=== PATIENT | female | born 1995 | race African-American/Black ===

== ENCOUNTER 2016-11-07 22:41 | Inpatient (IN) | payer MEDICAID ==
[2016-11-07 23:20] LABS: Hematocrit 35 % (35-47); Hemoglobin 10.8 g/dl (12.0-16.0); Mean Corpuscular HGB Conc 31 g/dl (31-36); Mean Corpuscular Hemoglobin 25 pg (27-31); Mean Corpuscular Volume 79 fL (80-97); Mean Platelet Volume 12 um3 (7.4-10.4); Red Blood Count 4.39 10^6/ul (4.0-5.4); Red Cell Distribution Width 18 % (10.5-15); White Blood Count 9.7 10^3/ul (3.5-10.8)
[2016-11-07 23:24] LABS: Comments Flag Yes
[2016-11-07] MEDS ORDERED: Propofol* 10 MG/ML 20 ML BTL IV PUSH ONE (23:33)
[2016-11-07] MEDS ORDERED: Midazolam* 1 MG/ML 5 ML VIAL (5 MG) ONE (23:46)
[2016-11-07] MEDS ORDERED: ceFOXitin 2 GM IVPREMIX* 2 GM/50 ML BAG ONE (23:46)
[2016-11-07] MEDS ORDERED: fentaNYL* 50 MCG/ML 5 ML VIAL (250 MCG VIAL) ONE (23:49)
[2016-11-08] MEDS ORDERED: Propofol* 10 MG/ML 20 ML BTL IV PUSH ONE (00:09)
[2016-11-08] MEDS ORDERED: Glycerin ADULT SUPP PR PRN (00:27)
[2016-11-08] MEDS ORDERED: Witch Hazel PAD* JAR TOPICAL PRN (00:27)
[2016-11-08] MEDS ORDERED: Acetaminophen TAB* 325 MG PO PRN (00:27)
[2016-11-08] MEDS ORDERED: Dibucaine 1% 28.35 GM TUBE PR PRN (00:27)
[2016-11-08] MEDS ORDERED: Tetan/Diph/Pertus SYR(Tdap)* 0.5 ML SYR(BOOSTRIX) use SYR IM ONE (00:27)
[2016-11-08] MEDS ORDERED: Zolpidem TAB* 5 MG PO PRN (00:27)
[2016-11-08] MEDS ORDERED: OXYTOCIN* 10 UNITS/ML 1 ML VIAL ONE (00:29)
[2016-11-08] MEDS ORDERED: Succinylcholine* 20 MG/ML 10 ML VIAL ONE (00:30)
[2016-11-08] MEDS ORDERED: DiMENhydriNATE IV* 50 MG/ML VIAL IV PUSH PRN (00:39)
[2016-11-08] MEDS ORDERED: HYDROmorphone* 1 MG/ML 1 ML SYR IV PRN (00:39)
[2016-11-08] MEDS ORDERED: Ketorolac INJ* 30 MG/ML 1 ML VIAL IV PRN (00:39)
[2016-11-08] MEDS ORDERED: Ondansetron INJ* 2 MG/ML VIAL IV PRN (00:39)
[2016-11-08] MEDS: fentaNYL* 50 MCG/ML 2 ML VIAL (100 MCG VIAL) IV PRN ×4 (00:59→02:10)
[2016-11-08] MEDS ORDERED: Oxytocin in LR* 20 UNITS/1,000 ML BAG IVPB ONE (01:03)
[2016-11-08] MEDS: oxyCODONE/Acetamin 5/325 MG* TAB PO PRN ×4 (03:07→17:58)
[2016-11-08] MEDS: Docusate CAP* 100 MG PO SCH ×2 (08:00→14:25)
[2016-11-08] MEDS: Simethicone CHEW TAB* 80 MG PO SCH ×3 (08:00→17:58)
[2016-11-08] MEDS: Ibuprofen TAB* 600 MG PO PRN ×2 (12:18→17:58)
--- NOTE | 2016-11-08 16:54 | OP ---
CC: Dr. Allen Hayward, [facility] * DATE OF OPERATION: 11/08/16 - ROOM #[id number] DATE OF : 89 SURGEON: Cornelius Jurado MD MANAGER DISASTER RECOVERY: Allen Hayward MD ANESTHESIA: General anesthetic with endotracheal intubation. PRE-OP DIAGNOSIS: Twin intrauterine , premature rupture of membranes at 36 weeks in labor, post spontaneous vaginal delivery of the first presenting twin in cephalic presentation and second twin in breech presentation, unable to do a breech extraction. POST-OP DIAGNOSIS: Twin intrauterine , premature rupture of membranes at 36 weeks in labor, post spontaneous vaginal delivery of the first presenting twin in cephalic presentation and second twin in breech presentation, unable to do a breech extraction. OPERATIVE PROCEDURE: Primary low transverse section. ESTIMATED BLOOD LOSS: 700 cc. IV FLUIDS: 1700 cc of IV crystalloid fluid. URINE OUTPUT: Clear. FINDINGS: After the with delivery of baby B, the section, breech extraction with a weight of 4135 grams and Apgars of 7 and 9 over clear fluid. The placenta was noted to be grossly intact and sent to Pathology. The uterus, adnexa, bowel and bladder were all within normal limits. There were no complications. DESCRIPTION OF PROCEDURE: The patient was taken to the operating room after the first twin had been delivered via spontaneous vaginal delivery of cephalic presentation. After delivery of the first twin, an attempt was made to do a breech extraction with the second twin which was in a breech presentation; however, this was unsuccessful. After this, a section was done. The patient had a general anesthetic with endotracheal intubation. She was then placed in the supine position with a leftward tilt, prepped and draped in the normal sterile fashion. A Pfannenstiel skin incision was made with a knife and carried through to the underlying layer of fascia. The fascia was nicked in the midline and extended laterally with curved Gonzalez scissors. The fascia was then grasped superiorly and inferiorly with Hillary clamps, dissected off sharply from the rectus muscle. The rectus muscle was in the midline bluntly. The peritoneum was identified, grasped with pickups, entered sharply with Metzenbaum scissors, and extended superiorly and inferiorly sharply. A bladder blade was inserted into the patient's abdomen. A low transverse uterine incision was made with a knife, extended laterally with bandage scissors. The 's feet were then grasped and a breech extraction was then performed. The rest of the infant's body was delivered without any incident. The cord was clamped and cut. The infant was then handed off to the awaiting retail sales director. The placenta was removed manually. The uterus was then exteriorized and cleared of all clot and debris using moist laparotomy sponges. The uterine incision was then closed using 0 Polysorb suture in a running fashion with a second imbricating layer of 0 Polysorb suture. The incision in the uterus was noted to be hemostatic. At this point, the uterus was then returned to the patient's abdomen. The gutters were then cleared of all clot and debris using moist laparotomy sponges. All the sponge and instruments were then removed from the patient's abdomen. The peritoneum was then closed using 3 -0 Polysorb suture. The fascia was closed using 0 Polysorb suture in a running fashion and the skin was closed with a 4-0 Monocryl subcuticular stitch. The patient tolerated the procedure well. Sponge, lap, and needle counts were correct x2. She was then transferred to the recovery room area in stable condition. [id number]/[id number] #: [id number] MTDD
[2016-11-09] MEDS: Docusate CAP* 100 MG PO SCH ×3 (00:10→12:31)
[2016-11-09] MEDS: Simethicone CHEW TAB* 80 MG PO SCH ×4 (00:10→18:35)
[2016-11-09] MEDS: oxyCODONE/Acetamin 5/325 MG* TAB PO PRN ×4 (00:10→18:34)
[2016-11-09] MEDS: Ibuprofen TAB* 600 MG PO PRN ×3 (06:13→18:35)
[2016-11-09 06:26] LABS: Hematocrit 18 % (35-47); Mean Corpuscular HGB Conc 31 g/dl (31-36); Mean Corpuscular Hemoglobin 24 pg (27-31); Mean Corpuscular Volume 80 fL (80-97); Mean Platelet Volume 11 um3 (7.4-10.4); Red Blood Count 2.21 10^6/ul (4.0-5.4); Red Cell Distribution Width 18 % (10.5-15); White Blood Count 12.2 10^3/ul (3.5-10.8)
[2016-11-09 06:27] LABS: Comments Flag Yes
[2016-11-09 06:28] LABS: Add Diff/Slide Review? Slide Review Added; Hemoglobin 5.4 g/dl (12.0-16.0)
[2016-11-09 06:51] LABS: Hypochromasia 2+; Macrocytosis 1+; Microcytosis 1+
[2016-11-09] MEDS: Ferrous Gluconate TAB* 324 MG TAB PO SCH (08:41)
[2016-11-09] MEDS ORDERED: Misoprostol TAB* 200 MCG PR ONE (11:25)
[2016-11-09] MEDS ORDERED: Misoprostol TAB* 200 MCG ONE (11:32)
[2016-11-10] MEDS: Ibuprofen TAB* 600 MG PO PRN ×4 (00:44→20:55)
[2016-11-10] MEDS: Ferrous Gluconate TAB* 324 MG TAB PO SCH ×3 (00:44→20:55)
[2016-11-10] MEDS: Docusate CAP* 100 MG PO SCH ×4 (00:44→20:55)
[2016-11-10] MEDS: oxyCODONE/Acetamin 5/325 MG* TAB PO PRN ×3 (00:45→16:28)
[2016-11-10] MEDS: Simethicone CHEW TAB* 80 MG PO SCH ×5 (00:46→20:55)
[2016-11-10 07:18] LABS: Hematocrit 20 % (35-47); Mean Corpuscular HGB Conc 32 g/dl (31-36); Mean Corpuscular Hemoglobin 27 pg (27-31); Mean Corpuscular Volume 82 fL (80-97); Mean Platelet Volume 10 um3 (7.4-10.4); Red Blood Count 2.43 10^6/ul (4.0-5.4); Red Cell Distribution Width 19 % (10.5-15); White Blood Count 13.2 10^3/ul (3.5-10.8)
[2016-11-10 07:24] LABS: Comments Flag Yes
[2016-11-10 07:27] LABS: Hemoglobin 6.4 g/dl (12.0-16.0)
[2016-11-11] MEDS: oxyCODONE/Acetamin 5/325 MG* TAB PO PRN ×4 (00:48→19:24)
[2016-11-11 08:08] VITALS: BP 147/87
[2016-11-11] MEDS: Ferrous Gluconate TAB* 324 MG TAB PO SCH (09:33)
[2016-11-11] MEDS: Simethicone CHEW TAB* 80 MG PO SCH ×3 (09:33→18:20)
[2016-11-11] MEDS: Docusate CAP* 100 MG PO SCH ×2 (09:33→13:34)
[2016-11-11] MEDS: Ibuprofen TAB* 600 MG PO PRN ×2 (09:33→18:20)
[2016-11-11 09:59] LABS: Hematocrit 26 % (35-47); Hemoglobin 8.3 g/dl (12.0-16.0); Mean Corpuscular HGB Conc 33 g/dl (31-36); Mean Corpuscular Hemoglobin 27 pg (27-31); Mean Corpuscular Volume 84 fL (80-97); Mean Platelet Volume 9 um3 (7.4-10.4); Red Blood Count 3.05 10^6/ul (4.0-5.4); Red Cell Distribution Width 18 % (10.5-15); White Blood Count 11.4 10^3/ul (3.5-10.8)
[2016-11-11] MEDS ORDERED: medroxyPROGESTERone ACETATE (DEPOT)* 150 MG/ML 1 ML IM ONE (15:57)
== END 2016-11-11 19:30 | disposition home or self-care (01) | DRG 540 ==
LOC: MCHOBOUT 22:41 → MCHOB 22:51
PROVIDERS: ADMIT Obstetrics & Gynecology; ATTEND Obstetrics & Gynecology
PROC: 10D00Z1 Extraction of Products of Conception, Low, Open Approach (ICD-10-PCS; 2016-11-07)
PROC: 10E0XZZ Delivery of Products of Conception, External Approach (ICD-10-PCS; principal; 2016-11-07 23:13)
PROC: 4A1HXCZ Monitoring of Products of Conception, Cardiac Rate, External Approach (ICD-10-PCS; 2016-11-07 23:13)
PROC: 30233N1 Transfusion of Nonautologous Red Blood Cells into Peripheral Vein, Percutaneous Approach (ICD-10-PCS; 2016-11-08)
DX: O32.1XX2 Maternal care for breech presentation, fetus 2 (principal); O72.1 Other immediate postpartum hemorrhage; O30.003 Twin pregnancy, unspecified number of placenta and unspecified number of amniotic sacs, third trimester; Z37.2 Twins, both liveborn; Z3A.35 35 weeks gestation of pregnancy; Z86.19 Personal history of other infectious and parasitic diseases; O62.3 Precipitate labor; O99.03 Anemia complicating the puerperium; D64.9 Anemia, unspecified; O42.013 Preterm premature rupture of membranes, onset of labor within 24 hours of rupture, third trimester
CPT/HCPCS: 36415; 85025; 85027; 86850; 86900; 86901; 86922; 88307; A9270-GY; J0330; J0694; J1050; J1170; J1885; J2250; J2405; J2590; J2704; J3010; P9040